=== PATIENT | female | born 1945 | race Caucasian/White ===

== ENCOUNTER 2017-01-18 14:21 | Emergency (ER) | payer MEDICARE | END 2017-01-18 15:45 | disposition left against medical advice (07) | LOC: ER1 14:21 | DX: Z53.21 Procedure and treatment not carried out due to patient leaving prior to being seen by health care provider (principal) ==

== ENCOUNTER 2017-01-20 13:29 | Emergency (ER) | payer MEDICARE ==
[2017-01-20 14:39] LABS: HEMOGLOBIN 16.6 gm/dl (12.3-15.3); RED BLOOD COUNT 5.36 M/UL (4.00-5.10); WHITE BLOOD COUNT 8.5 K/UL (4.5-11.0)
[2017-01-20 14:58] LABS: BUN/CREATININE RATIO 23 (0-10)
== END 2017-01-20 22:20 ==
LOC: ER1 13:29
PROVIDERS: Specialist/Technologist Athletic Trainer
DX: G45.9 Transient cerebral ischemic attack, unspecified (principal); R51 Headache; I10 Essential (primary) hypertension
CPT/HCPCS: 36415; 70450; 71010; 80053; 82550; 82553; 83874; 84484; 85025; 93005; 99285

== ENCOUNTER → 2021-08-22 | Outpatient (CLI) | payer MEDICARE | LOC: MAMO 07-28 14:00 | DX: Z12.31 Encounter for screening mammogram for malignant neoplasm of breast (principal) | CPT/HCPCS: 77063; 77067 ==

== ENCOUNTER → 2022-05-29 | Outpatient (CLI) | payer MEDICARE | LOC: KOH-I 10:33 | DX: F17.210 Nicotine dependence, cigarettes, uncomplicated (principal); R91.8 Other nonspecific abnormal finding of lung field | CPT/HCPCS: 71271 ==